=== PATIENT | female | born 1980 | race Native Hawaiian/Other Pacific Islander ===

== ENCOUNTER 2017-03-25 13:38 | Outpatient (CLI) | payer OTHER | END 2017-03-25 19:13 | disposition home or self-care (01) | LOC: RAD 13:38 | DX: R10.84 Generalized abdominal pain (principal) ==

== ENCOUNTER 2017-07-01 16:04 | Outpatient (CLI) | payer OTHER | END 2017-07-01 18:21 | disposition home or self-care (01) | LOC: RAD 16:04 | DX: R05 Cough (principal) ==

== ENCOUNTER 2020-01-18 08:54 | Outpatient (CLI) | payer OTHER | END 2020-01-18 20:23 | disposition home or self-care (01) | LOC: MAMMO 08:54 | DX: Z12.31 Encounter for screening mammogram for malignant neoplasm of breast (principal) ==

== ENCOUNTER 2020-04-30 14:39 | Outpatient (CLI) | payer OTHER | END 2020-04-30 18:59 | disposition home or self-care (01) | LOC: RAD 14:39 | PROVIDERS: ATTEND Plastic Surgery | DX: Z01.818 Encounter for other preprocedural examination (principal) ==

== ENCOUNTER 2020-12-18 07:55 | Outpatient (CLI) | payer OTHER ==
[2020-12-18 08:15] LABS: PLATELET COUNT 273 K/uL (152-353)
[2020-12-18 09:07] LABS: POTASSIUM 4.1 mmol/L (3.6-5.2)
== END 2020-12-18 21:42 | disposition home or self-care (01) ==
LOC: LABW 07:55 → RAD 09:00 → LABW 21:42
PROVIDERS: ATTEND Obstetrics & Gynecology
DX: Z00.00 Encounter for general adult medical examination without abnormal findings (principal); Z13.220 Encounter for screening for lipoid disorders; N95.1 Menopausal and female climacteric states; G47.09 Other insomnia; Z82.62 Family history of osteoporosis; E89.41 Symptomatic postprocedural ovarian failure
CPT/HCPCS: 36415; 80053; 80061; 83001; 83002; 84402; 84403; 84436; 84443; 84479; 85027

== ENCOUNTER 2022-05-09 17:15 | Observation (INO) | payer OTHER ==
[~2022-05-09] VITALS: Ht 149.9 cm; Wt 68.1 kg
[2022-05-09 17:20] VITALS: BP 135/70; TEMP 98.7
[2022-05-09 19:03] LABS: PLATELET COUNT 311 K/uL (152-353)
[2022-05-09 19:12] LABS: POTASSIUM 3.8 mmol/L (3.6-5.2)
[2022-05-09 21:09] VITALS: BP 118/61; TEMP 98.6; Ht 149.9 cm; Wt 68.1 kg
[2022-05-09 23:32] VITALS: BP 110/59; TEMP 98.2
[2022-05-10 03:34] VITALS: BP 117/53; TEMP 98.3
[2022-05-10 04:27] LABS: PLATELET COUNT 288 K/uL (152-353)
[2022-05-10 04:53] LABS: POTASSIUM 4.1 mmol/L (3.6-5.2)
[2022-05-10 08:00] VITALS: BP 105/53; TEMP 98.5
[2022-05-10] MEDS ORDERED: FLUOXETINE40 MG PO (10:03)
[2022-05-10] MEDS ORDERED: PANTOPRAZOLE 40MG TA PO (10:04)
[2022-05-10] MEDS ORDERED: NP THYROID60 MG PO (10:04)
[2022-05-10] MEDS ORDERED: SIMVASTATIN PO (10:04)
[2022-05-10] MEDS ORDERED: BUPROPION HYDR150 M2 PO (10:05)
[2022-05-10] MEDS ORDERED: ZINC50 M1 PO (10:05)
[2022-05-10] MEDS ORDERED: VITAMIN C1000 MG PO (10:06)
[2022-05-10] MEDS ORDERED: VITAMIN D310000 UNIT PO (10:06)
[2022-05-10] MEDS ORDERED: MELATONIN EXTRA10 MG PO (10:07)
[2022-05-10] MEDS ORDERED: CETI10TA PO (10:07)
[2022-05-10 12:00] VITALS: BP 112/64; TEMP 98.2
[2022-05-10] MEDS ORDERED: LEVAQUIN250 MG PO (12:58)
== END 2022-05-10 15:05 | disposition home or self-care (01) ==
LOC: ED 17:15 → MED/SURG 20:00
PROVIDERS: ADMIT Emergency Medicine; ATTEND Internal Medicine
DX: N30.01 Acute cystitis with hematuria (principal); B96.20 Unspecified Escherichia coli [E. coli] as the cause of diseases classified elsewhere; E78.49 Other hyperlipidemia; E03.8 Other specified hypothyroidism; K21.9 Gastro-esophageal reflux disease without esophagitis; F41.8 Other specified anxiety disorders
CPT/HCPCS: 36415; 51702; 80053; 81000; 85027; 87077; 87086; 87088; 87186; 87635; 96360; 96361; 96365; 96367; 99220; 99283; G0378; J0696; U0003